=== PATIENT | male | born 1985 | race African-American/Black ===

== ENCOUNTER 2023-08-04 09:23 | Emergency (ER) | payer SELFPAY ==
[~2023-08-04] VITALS: Ht 190.5 cm; Wt 113.0 kg
[~2023-08-04 09:23] MED LIST: CIPHCO EACH EAR
[2023-08-04 09:30] VITALS: O2SAT 100
[2023-08-04] MEDS ORDERED: KETOROLAC 60MG/2ML VIAL IM ONE (10:30)
[2023-08-04] MEDS ORDERED: TOPUD MT (11:10)
[2023-08-04] MEDS ORDERED: IBUP-1525 MT (11:10)
[2023-08-04 11:36] VITALS: BP 138/67; PULSE 73; RESP 20; TEMP 98.4
== END 2023-08-04 11:37 | disposition home or self-care (01) ==
LOC: ER 09:23
DX: M25.511 Pain in right shoulder (principal); R07.89 Other chest pain; Z90.49 Acquired absence of other specified parts of digestive tract
CPT/HCPCS: 71045; 93005; 96372; 99283; J1885; Z7610

== ENCOUNTER 2023-10-23 22:57 | Emergency (ER) | payer MEDICAID ==
[~2023-10-23] VITALS: Ht 193 cm; Wt 114.0 kg
[~2023-10-23 22:57] MED LIST changes: +IBUP-1525 MT; +TOPUD MT
[2023-10-23 23:15] VITALS: O2SAT 99
[2023-10-24] MEDS: KETOROLAC 15MG/ML VIAL IM ONE (00:50)
[2023-10-24] MEDS ORDERED: NAPR-1176 MT (01:42)
[2023-10-24 02:12] VITALS: BP 97/70; PULSE 65; RESP 16; TEMP 98.1
== END 2023-10-24 02:15 | disposition home or self-care (01) ==
LOC: ER 22:57
DX: S86.012A Strain of left Achilles tendon, initial encounter (principal); X58.XXXA Exposure to other specified factors, initial encounter; Y93.89 Activity, other specified; Y92.89 Other specified places as the place of occurrence of the external cause; Y99.8 Other external cause status
CPT/HCPCS: 73610; 29505; 99283; 96372; J1885; Z7610

== ENCOUNTER 2023-11-08 06:29 | Emergency (ER) | payer MEDICAID ==
[~2023-11-08] VITALS: Ht 190.5 cm; Wt 114.0 kg
[~2023-11-08 06:29] MED LIST changes: +NAPR-1176 MT
[2023-11-08 07:18] VITALS: BP 130/80; PULSE 84; TEMP 98.2; O2SAT 99
[2023-11-08 10:00] VITALS: RESP 16
== END 2023-11-08 10:15 | disposition home or self-care (01) ==
LOC: ER 06:48
DX: H61.23 Impacted cerumen, bilateral (principal)
CPT/HCPCS: 99281